=== PATIENT | male | born 1940 | race Caucasian/White ===

== ENCOUNTER 2023-12-18 17:38 | Emergency (ER) | payer MEDICARE, OTHER ==
[2023-12-18 17:47] VITALS: BP 215/111; PULSE 85
[2023-12-18] MEDS: Diphtheria,Pertussis(Acell),Tetanus Vaccine 0.5 ML Syringe IM ONE (18:04)
[2023-12-18] MEDS: Lidocaine 1% with EPINEPHrine 1:100,000 20 ML MDV INFILT PRN (18:04)
== END 2023-12-18 20:53 | disposition home or self-care (01) ==
LOC: VM.ED 17:38
DX: S01.01XA Laceration without foreign body of scalp, initial encounter (principal); I10 Essential (primary) hypertension; Z79.82 Long term (current) use of aspirin; Z79.899 Other long term (current) drug therapy; Z23 Encounter for immunization; W22.8XXA Striking against or struck by other objects, initial encounter
CPT/HCPCS: 12004; 70450; 72125; 90471; 90715; 99283; 99283-25; J3490

== ENCOUNTER 2024-06-08 10:38 | Emergency (ER) | payer MEDICARE, OTHER ==
[2024-06-08] MEDS ORDERED: Sodium Chloride 0.9% 10 ML Syringe FLUSH PRN (10:42)
[2024-06-08 10:51] LABS: BASOPHILS PERCENT AUTO 0.3 % (0.2-1.2); EOSINOPHILS ABSOLUTE AUTO 0.1 x10^3/uL (0.0-0.5); EOSINOPHILS PERCENT AUTO 1.7 % (0.0-4.0); HEMATOCRIT 40.2 % (40.0-52.0); HEMOGLOBIN 13.4 g/dL (14.0-18.0); LYMPHOCYTES ABSOLUTE AUTO 1.6 x10^3/uL (1.0-4.8); LYMPHOCYTES PERCENT AUTO 27.2 % (25.0-50.0); MEAN CORPUSCULAR HEMOGLOBIN 30.5 pg (26.0-32.0); MEAN CORPUSCULAR HGB CONC 33.3 g/dL (32.0-36.0); MEAN CORPUSCULAR VOLUME 91.4 fL (78.0-93.0); MONOCYTES ABSOLUTE AUTO 0.5 x10^3/uL (0.0-0.8); MONOCYTES PERCENT AUTO 8.8 % (2.0-11.0); NEUTROPHILS ABSOLUTE AUTO 3.8 x10^3/uL (1.8-7.7); PLATELET COUNT,PLT 217 x10^3/uL (130-400)
[2024-06-08] MEDS: Labetalol 20 MG/4 ML Syringe IVPUSH ONE (10:58)
[2024-06-08 11:06] LABS: PTT,PARTIAL THROMBOPLSTIN TIME 27.9 SEC (21.9-33.8)
[2024-06-08 11:10] LABS: ALANINE AMINOTRANSFERASE,ALT 11 U/L (16-63); ALBUMIN 3.5 g/dL (3.4-5.0); ALKALINE PHOSPHATASE 88 U/L (46-116); ASPARTATE AMNIOTRANSFERASE,AST 26 U/L (15-37); BILIRUBIN TOTAL 0.6 mg/dL (0.2-1.0); BLOOD UREA NITROGEN,BUN 15 mg/dL (7-18); CARBON DIOXIDE,CO2 26 mmol/L (21-32); CHLORIDE,CL 107 mmol/L (98-107); CREATININE 0.8 mg/dL (0.70-1.30); GLUCOSE RANDOM 113 mg/dL (70-99); MAGNESIUM 1.9 mg/dL (1.8-2.4); POTASSIUM,K 3.9 mmol/L (3.5-5.1); SODIUM,NA 142 mmol/L (136-145)
[2024-06-08] MEDS ORDERED: Tranexamic Acid 1,000 MG/10 ML Vial IV ONE (11:11)
[2024-06-08 11:15] LABS: INR 1.1 (0.9-1.1); PROTHROMBIN TIME 10.7 SEC (8.9-11.5)
[2024-06-08 11:22] LABS: ANION GAP 12.9 mmol/L (5-15); ESTIMATED GFR 87 mL/min (>=60); ETHANOL BLOOD MEDICAL < 3 mg/dL (0-3)
[2024-06-08] MEDS: Tranexamic Acid 1,000 MG in Sodium Chloride 0.9% 100 ML IV ONE ×2 (11:33→11:44)
[2024-06-08] MEDS ORDERED: Tranexamic Acid 1,000 MG in Sodium Chloride 0.9% 100 ML IV ONE (11:37)
[2024-06-08] MEDS: niCARdipine/Normal Saline 20 MG in Premix Bag 1 BAG IV SCH (11:43)
== END 2024-06-08 12:26 | disposition short-term general hospital (02) ==
LOC: VM.ED 10:38
DX: I62.9 Nontraumatic intracranial hemorrhage, unspecified (principal); I10 Essential (primary) hypertension; Z79.82 Long term (current) use of aspirin; Z79.899 Other long term (current) drug therapy
CPT/HCPCS: 70450; 80053; 80307; 82947; 83735; 84484; 85025; 85610; 85730; 93005; 93010; 96365; 96368; 96375; 96376; 99284; 99285-25; J1920; J3490

== ENCOUNTER 2024-06-15 10:47 | Emergency (ER) | payer MEDICARE, OTHER ==
[2024-06-15] MEDS ORDERED: Sodium Chloride 0.9% 1,000 ML IV ONE (10:54)
[2024-06-15 15:48] VITALS: BP 149/72; PULSE 68
== END 2024-06-15 14:06 | disposition left against medical advice (07) ==
LOC: VM.ED 10:47
DX: I62.9 Nontraumatic intracranial hemorrhage, unspecified (principal); I10 Essential (primary) hypertension; Z79.82 Long term (current) use of aspirin; Z79.899 Other long term (current) drug therapy
CPT/HCPCS: 70450; 99283